=== PATIENT | male | born 1990 | race Caucasian/White ===

== ENCOUNTER 2017-04-13 18:39 | Emergency (ER) | payer SELFPAY ==
[~2017-04-13] VITALS: Ht 170.2 cm; Wt 80.0 kg
[~2017-04-13 18:39] MED LIST: BACT800T5 PO; CEPH500C3 PO
[2017-04-13 18:41] VITALS: BP 125/85; PULSE 103; TEMP 99.1; O2SAT 99
--- NOTE | 2017-04-13 20:09 | PD ---
Physical Exam Date Seen by Provider: Apr 13, 2017 Time Seen by Provider: 20:03 Narrative 26 y/o male with question of possible cut to back of throat from drinking honey from a broken glass bottle. Patient having throbbing deep pain deep in base of throat. Is able to eat, but is uncomfortable. Has Hx. GERD that he takes occasional Zantac. No Blood or Abdominal Pain. Concerned about possible glass in throat. At Worse pain was 9/10. Currently 3-4/10. Vital signs reviewed. Patient stable. Awaiting Bed placement. Data Data Last Documented VS Vital Signs Date Time Temp Pulse Resp B/P Pulse Ox O2 Delivery O2 Flow Rate FiO2 04/13/17 18:41 99.1 103 125/85 99 MDM Medical Record Reviewed: Yes Supervised Visit with CATHY: Yes Condition: Stable Ismael Chao Apr 13, 2017 20:09
--- NOTE | 2017-04-13 21:08 | PD ---
HPI Chief Complaint: ENT Complaint Time Seen by Provider: 21:02 Travel History International Travel<30 days: No Contact w/Intl Traveler<30days: No Traveled to known affect area: No History of Present Illness HPI 26-year-old white male presents to emergency department with concerns of a possible ingested piece of glass. He states that 2 days ago he was cleaning up a broken jar of honey when he had taken a teaspoon of it and is now concerned that he may have ingested a small piece of glass. The patient states that approximately 20-30 minutes later he noticed some mild discomfort in his throat. Since then he has had persistent discomfort in his throat worse with swallowing. 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 He states that he gets muscle cramps as well as cramping and pain in his throat and esophagus in the area which he was complaining of a possible foreign body. The patient has a history of anxiety. He states that the longer he thinks about having a possible foreign bodies making him feel very anxious and nervous. He knows that this is most likely not life-threatening. The patient denies any fever or chills. No runny nose, cough or congestion. He is able to work and perform his duties without limitations. He is eating and drinking normally. [facility] Past Medical History Narrative Medical Skin cancer, Anxiety, GERD Blood Disorders: No Cancer: Yes (SKIN) Cardiovascular Problems: No Diminished Hearing: No Endocrine: No Genitourinary: No Immune Disorder: No Musculoskeletal: No Psychiatric: No Reproductive: No Respiratory: No Immunizations Current: Yes Migraines: Yes Tetanus Vaccination: < 5 Years Past Surgical History Other Surgery: Yes (SKIN CANCERS REMOVED FROM LEFT HAND) Social History Alcohol Use: No Tobacco Use: No Substance Use: No Allergies-Medications (Allergen,Severity, Reaction): Coded Allergies: [place] Tree (Verified Adverse Reaction, Severe, ITCHY EYES, CONGESTION , 04/13/17) Dust (Verified Adverse Reaction, Intermediate, ITCHY EYES, CONGESTION, 04/13) Grass (Verified Adverse Reaction, Intermediate, ITCHY EYES, CONGESTION, 04/13/17) Reported Meds & Prescriptions Reported Meds & Active Scripts Active No Active Prescriptions or Reported Medications Review of Systems Except as stated in HPI: all other systems reviewed are Neg General / Constitutional: No: Fever, Chills HENT: Positive: Sore Throat, No: Neck Stiffness, Neck Pain, Ear Discharge, Earache Cardiovascular: No: Chest Pain or Discomfort, Palpitations Respiratory: No: Cough, Shortness of Breath Gastrointestinal: Positive: Indigestion, No: Nausea, Vomiting, Diarrhea, Abdominal Pain, Hematemesis, Hematochezia, Constipation, Changes in Bowel Habits , Loss of Appetite Genitourinary: No: Dysuria, Hematuria Physical Exam Narrative GENERAL: Well-developed, well-nourished in no acute distress. Nontoxic appearing. Patient appears somewhat anxious. HEAD: Normocephalic, atraumatic. EYES: Pupils equal round and reactive. Extraocular motions intact. No scleral icterus. No injection or drainage. ENT: TMs clear without erythema. The external auditory canals clear. Nose: clear . Posterior pharynx is pink and moist. No tonsillar edema or exudate. Uvula midline. Airway patent. NECK: Trachea midline.Supple, nontender, moves head freely. No central bony tenderness or spasm. CARDIOVASCULAR: Regular rate and rhythm without murmurs, gallops, or rubs. RESPIRATORY: Clear to auscultation. Breath sounds equal bilaterally. No wheezes , rales, or rhonchi. GASTROINTESTINAL: Abdomen soft, non-tender, nondistended. No hepato-splenomegaly , or palpable masses. No guarding. EXTREMITIES: No clubbing, cyanosis, or edema. No joint tenderness, effusion, or edema noted. BACK: Nontender without deformity or crepitance. No flank tenderness. Data Data Last Documented VS Vital Signs Date Time Temp Pulse Resp B/P Pulse Ox O2 Delivery O2 Flow Rate FiO2 04/13/17 18:41 99.1 103 125/85 99 MDM Medical Decision Making Medical Screen Exam Complete: Yes Emergency Medical Condition: No Medical Record Reviewed: Yes Differential Diagnosis Differential diagnoses: Globus hystericus, strep throat, viral pharyngitis, foreign body Narrative Course A medical screening exam was performed: At the time of evaluation the presenting medical condition was determined not to be of an emergent nature. The patient was given the option of receiving additional care, but declined. Patient was given options for additional community resources from which to obtain care. The Patient Has Been advised to seek medical attention for their presenting complaint. The patient has been advised to return to the ER at any time if an emergent condition develops. Diagnosis Primary Impression: Encounter for medical screening examination Scripts No Active Prescriptions or Reported Meds Condition: Roberto Nuno Apr 13, 2017 21:07
== END 2017-04-13 21:04 | disposition left against medical advice (07) ==
LOC: NEPK 18:39
DX: J02.9 Acute pharyngitis, unspecified (principal); K21.9 Gastro-esophageal reflux disease without esophagitis; F41.9 Anxiety disorder, unspecified
CPT/HCPCS: 99281